=== PATIENT | female | born 1960 | race Hispanic/Latino ===

== ENCOUNTER 2016-07-31 13:52 | Outpatient (CLI) | payer MEDICARE ==
[2016-07-31 14:11] LABS: Hemoglobin A1c 6.6 % (4.0-6.0)
== END 2016-07-31 13:53 | disposition home or self-care (01) ==
LOC: NAVSJIPCSP 13:52
PROVIDERS: ATTEND Internal Medicine
DX: E11.9 Type 2 diabetes mellitus without complications (principal); E78.5 Hyperlipidemia, unspecified; Z79.899 Other long term (current) drug therapy
CPT/HCPCS: 80061; 83036

== ENCOUNTER 2016-11-20 12:00 | Outpatient (CLI) | payer MEDICARE ==
[2016-11-20 12:50] LABS: Hemoglobin A1c 6.8 % (4.0-6.0)
[2016-11-20 12:57] LABS: Cardiac Risk 3.8 (Less than 4.5)
== END 2016-11-20 12:01 | disposition home or self-care (01) ==
LOC: NAVSJIPCSP 12:00
PROVIDERS: ATTEND Internal Medicine
DX: E78.5 Hyperlipidemia, unspecified (principal); E11.9 Type 2 diabetes mellitus without complications
CPT/HCPCS: 36415; 80061; 83036